=== PATIENT | male | born 1990 | race Caucasian/White ===

== ENCOUNTER 2019-07-13 09:00 | Emergency (ER) | payer OTHER, SELFPAY ==
[2019-07-13 09:01] VITALS: BP 149/96; PULSE 87; RESP 16; TEMP 36.6; O2SAT 100; BMI 30.5
--- NOTE | 2019-07-13 09:20 | RAD_ITS ---
STUDY: X-RAY CHEST REASON FOR EXAM: Male, 28 years old. Weakness, fatigue TECHNIQUE: 2 AP portable views COMPARISON: None. FINDINGS: The lungs are clear and expanded. There is no demonstrated pleural abnormality. Normal size heart. Normal mediastinum and debbie. Normal visualized pulmonary arteries. Normal visualized aortic arch and descending thoracic aorta. Normal visualized thoracic spine. Normal visualized ribs, clavicles, and shoulders. There is no demonstrated abnormality of the visualized soft tissue structures of the upper abdomen. RAD/Chest 1 View (Portable) IMPRESSION: Normal x-ray examination of the chest. Electronically Signed: Wing Escalera MD at 9:53 EDT , Service support ,
--- NOTE | 2019-07-13 09:20 | EKG12_ITS ---
Test Reason : CP Blood Pressure : / mmHG Vent. Rate : 083 BPM Atrial Rate : 083 BPM P-R Int : 136 ms QRS Dur : 108 ms QT Int : 380 ms P-R-T Axes : 044 027 051 degrees QTc Int : 446 ms Normal sinus rhythm Normal ECG Confirmed by SANTANA JUAN, CORRINE ([id number]), development editor NOÉ SERRA ([id number]) on 07/14/2019 9:06:20 AM Referred By: BERNARDO Confirmed By:CORRINE DILLON MD
--- NOTE | 2019-07-13 09:22 | ED.DCSUM_ITS ---
- ER Visit Summary Date of Service: 07/13/19 Chief Complaint: Fatigue History of Present Illness: The patient is a 28 M presenting with fatigue. Patient states that he has had generalized weakness and fatigue ongoing for the past several days. He has had decreased appetite. He has nausea with no vomiting. Denies abdominal pain or diarrhea. He states he has had intermittent chest pain that he attributed to acid reflux. He states he took Zantac at home with improvement. He complains of chest burning sensation that has been intermittent since Sunday. Physical Examination: Vitals are stable. Patient is afebrile. Alert no acute distress. HEENT exam is unremarkable. Neck is supple. No meningismus Lungs are clear and equal bilaterally. Heart is regular rate and rhythm. Abdomen is soft mild epigastric tenderness with no rebound or guarding Extremities are unremarkable. Skin is warm and dry. No focal neurologic deficit. Remainder of exam is unremarkable. Emergency Department Course and Treatment: Patient was given IV fluids, Zofran. EKG is sinus rhythm rate of 83 with no acute ischemic changes. CBC, chemistries unremarkable. Liver lipase are normal. Troponin is negative. Bandera was negative. Patient was given a GI cocktail. Chest x-ray shows no acute process. Delta troponin is also negative. Patient states that he recently stopped using caffeine. He was drinking monster drinks daily and stopped this on Sunday before symptoms started. This may be contributing to his symptoms. He was given a prescription for Pepcid. Advised follow-up with his primary care physician as scheduled. Advised return to ED for worsening complaints. Disposition: Discharge home Impression: Fatigue This note was generated with [employer] dictation software. It may contain incorrect words, spelling, and punctuation that were not noted in review of the chart prior to signing ED Disposition - Plan for ED Patient: Instructions: GASTRITIS (Adult), WEAKNESS, Unk Cause Prescriptions: Famotidine [Pepcid] 20 mg PO BID #28 tab Prescription Printed Referrals: Gurwinder Gray MD [Primary Care Provider] -
[2019-07-13 09:37] LABS: Absolute Lymphocyte Count 1.73 X10^3/uL (0.83-4.51); Absolute Neutrophil Count 3.4 X10^3/uL (2.0-7.7); Basophil# 0.03 X10^3/uL; Basophil% 0.5 % (0-1); Eosinophil# 0.09 X10^3/uL; Eosinophils% 1.5 % (0-5); Hematocrit 41.9 % (40-54); Hemoglobin 14.3 g/dL (13.0-16.5); Lymphocyte # 1.73 X10^3/ul (4.0); Lymphocyte % 29.5 % (19-41); Mean Corp Hgb Conc 34.1 g/dL (32-36); Mean Corpuscular Hgb 28.6 pg (27.0-32.0); Mean Corpuscular Volume 83.8 fL (80-94); Mean Platelet Vol. 8.9 fl (6.2-12.0); Monocyte# 0.56 X10^3/uL; Monocyte% 9.6 % (0-10); NRBC Flagged by Analyzer 0 % (0-5); Neutrophil # 3.44 X10^3/uL (2.7-7.7); Neutrophil % 58.7 % (47-70); Platelet Count 252 K/mm3 (150-450); RBC Distribution Width CV 12.2 % (11.6-14.6); RBC Distribution Width SD 36.4 fl (35.1-43.9); White Blood Count 5.9 K/mm3 (4.4-11.0)
[2019-07-13] MEDS: 0.9% Normal Saline 1,000 ML 1000 ML IV (09:43)
[2019-07-13] MEDS: Ondansetron 4 MG/2 ML Vial IV (09:43)
[2019-07-13 09:46] LABS: Internal QC Validated? YES +Cl - CLEAR BKGD; Monotest Negative (Negative)
[2019-07-13 09:55] LABS: ALB/GLOB Ratio 1.5 RATIO (0.9-2.4); AST(SGOT) 16 U/L (15-37); Alanine Aminotransfer ALT/SGPT 40 U/L (16-61); Albumin, Serum 4.7 g/dL (3.2-5.0); Alkaline Phosphatase 64 U/L (45-117); Anion Gap 3 (5-15); BUN 16 mg/dL (7-18); BUN/Creat Ratio 15.1 RATIO (10-20); Calcium,Total 9.3 mg/dL (8.5-10.1); Chloride 104 mmol/L (98-107); Creatinine, Serum 1.06 mg/dL (0.70-1.30); EST Glomerular Filtration Rate 87 mL/min (>60); Est Glom Filt Rate - Afr Amer 105 mL/min (>60); Estimated Creatinine Clearance 111.84 ml/min; Globulin 3.2 g/dL (2.2-4.2); Glucose 93 mg/dL (74-106); Lipase 93 U/L (73-393); Potassium 3.7 mmol/L (3.5-5.1); Protein, Total 7.9 g/dL (6.4-8.2); Sodium Level 137 mmol/L (136-145)
[2019-07-13] MEDS: Mag Hydrox/Al Hydrox/Simeth 30 ML UDC PO (10:30)
[2019-07-13 11:19] VITALS: PULSE 60; O2SAT 97
[2019-07-13 13:00] VITALS: PULSE 66; RESP 16; O2SAT 96
--- NOTE | 2019-07-13 13:23 | ED.DEP ---
ED Disposition - Plan for ED Patient: Instructions: GASTRITIS (Adult), WEAKNESS, Unk Cause Prescriptions: Famotidine [Pepcid] 20 mg PO BID #28 tablet Referrals: Gurwinder Gray MD [Primary Care Provider] -
[2019-07-13 13:52] VITALS: PULSE 66; RESP 16; O2SAT 99
== END 2019-07-13 13:52 | disposition home or self-care (01) ==
PROVIDERS: Emergency Provider Emergency Medicine; Family Provider Family Medicine; PCP Family Medicine
DX: R53.83 Other fatigue (principal)
CPT/HCPCS: 71045; 80053; 83690; 84484; 85025; 86308; 93005; 96361; 96374; 99285; J7030; A4216; J2405

== ENCOUNTER 2019-07-14 09:09 | Emergency (ER) | payer OTHER, SELFPAY ==
[2019-07-13 09:01] VITALS: BMI 30.5
[2019-07-14 09:11] VITALS: BP 146/89; PULSE 79; RESP 17; TEMP 36.6; O2SAT 99; BMI 30.4
--- NOTE | 2019-07-14 09:24 | EKG12_ITS ---
Test Reason : ABD PAIN Blood Pressure : / mmHG Vent. Rate : 076 BPM Atrial Rate : 076 BPM P-R Int : 146 ms QRS Dur : 110 ms QT Int : 384 ms P-R-T Axes : 038 040 047 degrees QTc Int : 432 ms Normal sinus rhythm Incomplete right bundle branch block Borderline ECG Confirmed by COLTON JUAN, ITAL[place] ([id number]), senior editor NOÉ SERRA ([id number]) on 07/16/2019 10:44:35 AM Referred By: BERNARDO Confirmed By:ITALIA SEGURA MD
--- NOTE | 2019-07-14 09:24 | CT_ITS ---
STUDY: CT ABDOMEN AND PELVIS WITH CONTRAST REASON FOR EXAM: Male, 28 years old. Abdominal pain. Prior appendectomy. RADIATION DOSAGE (If Supplied By Facility): CTDIvol = ( 17.58 ) mGy, DLP = ( 1567.29 ) mGycm TECHNIQUE: Transaxial images were obtained from the dome of the diaphragm to the symphysis pubis without oral contrast. 100CC IV Isovue 370 was administered. Sagittal and coronal images were reconstructed. Individualized dose optimization techniques were used for this CT. COMPARISON: Comparison is made with prior study dated October 24, 2015. FINDINGS: The visualized lung bases are unremarkable. The visualized portions of the heart are within normal limits. Normal liver. Normal gallbladder and extrahepatic biliary system. Normal spleen. Normal pancreas. Normal bilateral adrenal glands. Normal right kidney. Normal left kidney. There is a small hiatal hernia. Normal small intestine. Normal colon. There are surgical clips in the region of the appendix consistent with a prior appendectomy. Normal abdominal aorta. Normal inferior vena cava. Normal retroperitoneum. Normal urinary bladder. Normal abdominal wall. Normal osseous structures. CT/Abdomen/Pelvis WITH Contrast IMPRESSION: Normal enhanced CT of the abdomen and pelvis. Electronically Signed: Edu Akbar, at 10:44 EDT , Service support ,
--- NOTE | 2019-07-14 09:25 | CT_ITS ---
STUDY: CTA CHEST REASON FOR EXAM: Male, 28 years old. Abdominal pain. RADIATION DOSAGE (If Supplied By Facility): CTDIvol = ( 17.58 ) mGy, DLP = ( 1567.29 ) mGycm TECHNIQUE: The examination was performed with the intravenous administration of 100CC IV Isovue 370. Post-processing of the angiographic images was performed, with multiplanar reformation and 3D reconstruction. Individualized dose optimization techniques were used for this CT. COMPARISON: None. FINDINGS: Small bilateral axillary lymph nodes. Just Normal enhancement of the main pulmonary artery and right and left pulmonary arteries. Normal enhancement of the bilateral peripheral pulmonary arteries. There is no demonstrated pulmonary embolism. Normal thoracic aorta and visualized great vessels. There is no demonstrated aortic dissection. Normal heart and pericardium. Normal mediastinum. Normal hilar regions. Normal visualized trachea and bronchi. The lungs are well expanded. Normal pulmonary parenchyma. Normal pleura. Normal chest wall structures. Normal osseous structures. Normal visualized upper abdomen. CT/CTA Chest W/WO Contrast IMPRESSION: Normal CTA chest examination, without a demonstrated pulmonary embolism or arterial dissection. Electronically Signed: Edu Akbar, at 10:45 EDT , Service support ,
--- NOTE | 2019-07-14 09:28 | ED.VISSUMM ---
- ER Visit Summary Date of Service: 07/14/19 Chief Complaint: Abdominal pain History of Present Illness: The patient is a 28 M presenting with abdominal pain. Patient states that this started today. He was seen in the ED yesterday with symptoms of acid reflux. He states the pain is different today more in the epigastric and left upper quadrant. He denies nausea or vomiting. He has been drinking a lot of fluids and has urinary frequency, no dysuria. Denies chest pain. He states the pain worsens when he takes a deep breath. He denies PE/DVT risk factors. Denies other complaints. Physical Examination: Vitals are stable. Patient is afebrile. Alert no acute distress. HEENT exam is unremarkable. Neck is supple. No meningismus Lungs are clear and equal bilaterally. Heart is regular rate and rhythm. Abdomen is soft mild epigastric and left upper quadrant tenderness with no rebound or guarding Extremities are unremarkable. Skin is warm and dry. Remainder of exam is unremarkable. Emergency Department Course and Treatment: Patient was given IV fluids, morphine, Zofran. EKG is sinus rhythm rate of 76. CBC, chemistries unremarkable. Liver lipase are normal. Troponin is negative. CTA chest shows normal CTA chest examination, without a demonstrated pulmonary embolism or arterial dissection. CT abdomen pelvis with IV contrast shows normal enhanced CT of the abdomen and pelvis. Following morphine patient developed pain in his neck. He was given Toradol with improvement. He was given a GI cocktail with improvement. He is resting comfortably. He is given prescription for Zofran. Advised to follow-up with his primary care physician. He may need referral to GI for endoscopy. Advised to return to the ED for worsening complaints. Disposition: Discharge home Impression: Abdominal pain This note was generated with [employer] dictation software. It may contain incorrect words, spelling, and punctuation that were not noted in review of the chart prior to signing ED Disposition - Plan for ED Patient: Instructions: ABDOMINAL PAIN, Unkown Cause, (Male) Prescriptions: Ondansetron [Zofran Odt] 4 mg PO Q8H PRN PRN #10 tab PRN Reason: Nausea Prescription Printed Referrals: Gurwinder Gray MD [Primary Care Provider] -
[2019-07-14] MEDS: Morphine 4 MG/ML Syringe IV (09:30)
[2019-07-14] MEDS: 0.9% Normal Saline 1,000 ML 1000 ML IV (09:31)
[2019-07-14] MEDS: Ondansetron 4 MG/2 ML Vial IV (09:31)
[2019-07-14 09:32] LABS: Absolute Lymphocyte Count 2.17 X10^3/uL (0.83-4.51); Absolute Neutrophil Count 3.7 X10^3/uL (2.0-7.7); Basophil# 0.03 X10^3/uL; Basophil% 0.5 % (0-1); Eosinophils% 1.5 % (0-5); Hematocrit 44.8 % (40-54); Hemoglobin 15.2 g/dL (13.0-16.5); Lymphocyte # 2.17 X10^3/ul (4.0); Lymphocyte % 33.1 % (19-41); Mean Corp Hgb Conc 33.9 g/dL (32-36); Mean Corpuscular Hgb 28.7 pg (27.0-32.0); Mean Corpuscular Volume 84.7 fL (80-94); Mean Platelet Vol. 9.1 fl (6.2-12.0); Monocyte# 0.55 X10^3/uL; Monocyte% 8.4 % (0-10); NRBC Flagged by Analyzer 0 % (0-5); Neutrophil # 3.69 X10^3/uL (2.7-7.7); Neutrophil % 56.3 % (47-70); Platelet Count 282 K/mm3 (150-450); RBC Distribution Width CV 11.9 % (11.6-14.6); RBC Distribution Width SD 36.4 fl (35.1-43.9); Red Blood Count 5.29 M/mm3 (4.6-6.2); White Blood Count 6.6 K/mm3 (4.4-11.0)
[2019-07-14 09:47] LABS: ALB/GLOB Ratio 1.4 RATIO (0.9-2.4); AST(SGOT) 19 U/L (15-37); Alanine Aminotransfer ALT/SGPT 41 U/L (16-61); Albumin, Serum 4.8 g/dL (3.2-5.0); Alkaline Phosphatase 67 U/L (45-117); Anion Gap 7 (5-15); BUN 13 mg/dL (7-18); BUN/Creat Ratio 12.3 RATIO (10-20); Calcium,Total 9.6 mg/dL (8.5-10.1); Chloride 105 mmol/L (98-107); Creatinine, Serum 1.06 mg/dL (0.70-1.30); EST Glomerular Filtration Rate 87 mL/min (>60); Est Glom Filt Rate - Afr Amer 105 mL/min (>60); Estimated Creatinine Clearance 111.84 ml/min; Globulin 3.5 g/dL (2.2-4.2); Glucose 91 mg/dL (74-106); Lipase 112 U/L (73-393); Potassium 3.9 mmol/L (3.5-5.1); Protein, Total 8.3 g/dL (6.4-8.2); Sodium Level 141 mmol/L (136-145)
[2019-07-14 11:14] VITALS: PULSE 66; RESP 10; O2SAT 98
[2019-07-14] MEDS: Mag Hydrox/Al Hydrox/Simeth 30 ML UDC PO (12:47)
[2019-07-14] MEDS: Ketorolac 30 MG/ML Syringe IV (12:47)
--- NOTE | 2019-07-14 13:47 | ED.DEP ---
ED Disposition - Plan for ED Patient: Instructions: ABDOMINAL PAIN, Unkown Cause, (Male) Prescriptions: Ondansetron [Zofran Odt] 4 mg PO Q8H PRN PRN #10 tablet PRN Reason: Nausea Referrals: Gurwinder Gray MD [Primary Care Provider] -
[2019-07-14 14:03] VITALS: BP 130/86; PULSE 70; RESP 15; O2SAT 99
== END 2019-07-14 14:08 | disposition home or self-care (01) ==
LOC: ED 10:15
PROVIDERS: Emergency Provider Emergency Medicine; Family Provider Family Medicine; PCP Family Medicine
DX: R10.12 Left upper quadrant pain (principal); R10.13 Epigastric pain
CPT/HCPCS: 71275; 74177; 80053; 83690; 84484; 85025; 93005; 96361; 96374; 96375; 99285; J7030; Q9967; A4216; J2405

== ENCOUNTER 2019-07-18 23:44 | Emergency (ER) | payer OTHER, SELFPAY ==
[2019-07-18 23:45] VITALS: BP 140/93; PULSE 69; RESP 18; TEMP 36.8; O2SAT 96; BMI 29.8
--- NOTE | 2019-07-19 00:10 | ED.VIS.GEN ---
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 He was at work tonight when he became lightheaded, sweaty, felt weak and tremorous. He states episode lasted approximately 10 minutes and then resolved. He did not have any chest pain or palpitations throughout the episode. Patient was seen twice in the ER earlier this week for feeling very fatigued. He had extensive work-up with no cause of his symptoms. Patient feels back to his baseline at this time. Past Medical History - Allergies and Home Meds Allergies/Adverse Reactions: Allergies morphine Allergy (Verified 07/18/19 23:49) Chest tightness Primary Care Physician: Gurwinder Gray MD [Primary Care Provider] - Prior records reviewed: Yes Past Medical History: - - Reviewed Smoking Status: Never smoker Review of Systems General: Denies: Chills Eyes: Denies: Visual changes - bilaterally ENT: Denies: Bilateral ear pain Cardiovascular: Denies: Chest pain Respiratory: Denies: Dyspnea Gastrointestinal: Denies: Abdominal pain, Nausea, Vomiting, Diarrhea Genitourinary: Denies: Dysuria Musculoskeletal: Denies: Swelling, Extremity Pain Neurological: Denies: Headache Endocrine: Denies: Polyuria, Polydipsia Hematologic: Denies: Easy bruising Allergy: Denies: Uticaria Physical Exam Vital Signs/Narrative: Vital Signs Temp Pulse Resp BP Pulse Ox 07/18/19 23:45 98.3 F 69 18 140/93 H 96 Inital Vital Signs reviewed: Yes General: Well nourished, Well developed Head: Normocephalic Eyes: EOMI ENT: Moist mucous membranes Neck: Supple, Nontender Cardiovascular: Regular rate, Regular rhythm Respiratory: No distress, CTA bilaterally Abdomen: Soft, Nontender, Nondistended Extremities: Nontender Skin: Normal color, No rash Neurological: Alert, Oriented x3 Psychological: Normal affect Diagnostic/Tx/Re-eval Laboratory Results 07/19/19 07/19/19 00:17 00:17 WBC 4.8 RBC 4.80 Hgb 13.8 Hct 40.2 MCV 83.8 MCH 28.8 MCHC 34.3 RDW Std Deviation 36.7 RDW Coeff of Oliver 12.1 Plt Count 230 MPV 9.2 Immature Gran % (Auto) 0.200 Neut % (Auto) 49.8 Lymph % (Auto) 35.6 Cooke % (Auto) 11.5 H Eos % (Auto) 2.3 Baso % (Auto) 0.6 Absolute Neuts (auto) 2.4 Absolute Lymphs (auto) 1.71 Nucleated RBC % 0 Sodium 138 Potassium 4.0 Chloride 106 Carbon Dioxide 27.0 Anion Gap 5 BUN 21 H Creatinine 1.08 Estim Creat Clear Calc 109.77 Est GFR (MDRD) Af Amer 103 Est GFR (MDRD) Non-Af 85 BUN/Creatinine Ratio 19.4 Glucose 98 Calcium 9.2 - Medical Decision Making Patient brought the EKG was performed on the floor with him. This reveals sinus rhythm at 65 with no acute ischemia. Patient was given IV fluids here. He was given something to eat. He had no further similar episodes while the emergency room. I did advise him that his BUN has climbed slightly in the last 5 days. I encouraged him to push fluids. My suspicion is that he had a vasovagal episode causing his issue tonight. He will be discharged home at this time. Impression: Vasovagal near syncope ED Disposition - Plan for ED Patient: Disposition: Home or Assisted Living Diagnosis: Near syncope Instructions: NEAR SYNCOPE, Vasovagal Referrals: Gurwinder Gray MD [Primary Care Provider] - 3-5 Days
[2019-07-19] MEDS: 0.9% Normal Saline 1,000 ML 1000 ML IV (00:17)
[2019-07-19 00:25] LABS: Absolute Lymphocyte Count 1.71 X10^3/uL (0.83-4.51); Absolute Neutrophil Count 2.4 X10^3/uL (2.0-7.7); Basophil# 0.03 X10^3/uL; Basophil% 0.6 % (0-1); Eosinophil# 0.11 X10^3/uL; Eosinophils% 2.3 % (0-5); Hematocrit 40.2 % (40-54); Hemoglobin 13.8 g/dL (13.0-16.5); Lymphocyte # 1.71 X10^3/ul (4.0); Lymphocyte % 35.6 % (19-41); Mean Corp Hgb Conc 34.3 g/dL (32-36); Mean Corpuscular Hgb 28.8 pg (27.0-32.0); Mean Corpuscular Volume 83.8 fL (80-94); Mean Platelet Vol. 9.2 fl (6.2-12.0); Monocyte# 0.55 X10^3/uL; Monocyte% 11.5 % (0-10); NRBC Flagged by Analyzer 0 % (0-5); Neutrophil # 2.39 X10^3/uL (2.7-7.7); Neutrophil % 49.8 % (47-70); Platelet Count 230 K/mm3 (150-450); RBC Distribution Width CV 12.1 % (11.6-14.6); RBC Distribution Width SD 36.7 fl (35.1-43.9); White Blood Count 4.8 K/mm3 (4.4-11.0)
[2019-07-19 00:39] LABS: Anion Gap 5 (5-15); BUN 21 mg/dL (7-18); BUN/Creat Ratio 19.4 RATIO (10-20); Calcium,Total 9.2 mg/dL (8.5-10.1); Chloride 106 mmol/L (98-107); Creatinine, Serum 1.08 mg/dL (0.70-1.30); EST Glomerular Filtration Rate 85 mL/min (>60); Est Glom Filt Rate - Afr Amer 103 mL/min (>60); Estimated Creatinine Clearance 109.77 ml/min; Glucose 98 mg/dL (74-106); Sodium Level 138 mmol/L (136-145)
[2019-07-19 01:06] VITALS: BP 131/84; PULSE 61; RESP 18; O2SAT 97
== END 2019-07-19 01:08 | disposition home or self-care (01) ==
PROVIDERS: Emergency Provider Emergency Medicine; Family Provider Family Medicine; PCP Family Medicine
DX: R55 Syncope and collapse (principal)
CPT/HCPCS: 80048; 85025; 96360; 99284; J7030; A4216

== ENCOUNTER → 2019-10-02 15:15 | Outpatient (CLI) | payer OTHER, SELFPAY ==
[2019-10-02 18:00] LABS: Anion Gap 5 (5-15); BUN 16 mg/dL (7-18); BUN/Creat Ratio 18.3 RATIO (10-20); Calcium,Total 9.1 mg/dL (8.5-10.1); Chloride 104 mmol/L (98-107); Cholesterol 243 mg/dL (200); Creatinine, Serum 0.88 mg/dL (0.70-1.30); EST Glomerular Filtration Rate 108 mL/min (>60); Est Glom Filt Rate - Afr Amer 131 mL/min (>60); Glucose 94 mg/dL (74-106); High Density Lipoprotein 40 mg/dL; Potassium 3.7 mmol/L (3.5-5.1); Sodium Level 137 mmol/L (136-145); Triglycerides 168 mg/dL; Very Low Density Lipoprotein 34 mg/dL (5-40)
== END ==
PROVIDERS: Family Provider Family Medicine; PCP Family Medicine; Referring Provider Family Medicine; Visit Provider Family Medicine
DX: Z00.00 Encounter for general adult medical examination without abnormal findings (principal)
CPT/HCPCS: 36415; 80048; 80061